=== PATIENT | male | born 1940 | race Caucasian/White ===

== ENCOUNTER 2021-10-10 23:55 | Inpatient (IN) | payer MEDICARE ==
[~2021-10-10] VITALS: Ht 175.3 cm; Wt 75.7 kg
--- NOTE | 2021-10-10 23:59 | NUR ---
- NIMA SHAIKH [phone], IS MOST HELPFUL FOR DAY TO DAY INFO, DORINA MENDEZ [phone]
--- NOTE | 2021-10-11 00:12 | NUR ---
Note maki in EDM - 10/11/21 at 0123 by MARY KAY PT [id number] C/O RIGHT KNEE PAIN S/P MECH TRIP AND FALL ONTO RIGHT KNEE WEDNESDAY +SWELLING +BRUISING +BLOOD THINNERS. PT A/OX3. TOLERATING R/A WELL WITH NO SOB.
--- NOTE | 2021-10-11 00:15 | NUR ---
PT [id number] C/O RIGHT KNEE PAIN S/P MECH TRIP AND FALL ONTO RIGHT KNEE WEDNESDAY +SWELLING +BRUISING +BLOOD THINNERS. PT A/OX3. TOLERATING R/A WELL WITH NO SOB.
--- NOTE | 2021-10-11 00:46 | NUR ---
PT RETURNED TO ER BED [address]
[2021-10-11] MEDS ORDERED: HYDROCODONE/APAP 5/325MG TABLET ONE ×2 (01:19→08:52)
[2021-10-11] MEDS ORDERED: HYDROCODONE/APAP 5/325MG TABLET PO ONE ×2 (01:30→09:00)
--- NOTE | 2021-10-11 02:20 | NUR ---
AT BEDSIDE WITH PT.
[2021-10-11] MEDS ORDERED: OXYC-128 PO (02:33)
--- NOTE | 2021-10-11 03:04 | NUR ---
CORDELL WRAP AAPPLIED TO RIGHT KNEE WITH ICE.
--- NOTE | 2021-10-11 03:57 | NUR ---
APA NO AVAILABLE TIME SLOT, TRY BACK AFTER 7AM.
--- NOTE | 2021-10-11 05:45 | NUR ---
PT DISCHARGE INSTRUCTIONS GIVEN, PT RT LEG CURRENTLY ELEVATED, WITH ICE PACK PLACED TO RT KNEE.
--- NOTE | 2021-10-11 07:27 | NUR ---
RN OFFERED PT REHAB RESOURSES BUT PT DENIED. DR. MIKE GONZALEZ AWARE. NOTIFIED DAUGHTER & NIMA. PT A/OX4 ABLE TO MAKE DECISIONS FOR HIMSELF; VERBALIZED RISKS VS BENEFITS.
--- NOTE | 2021-10-11 07:28 | NUR ---
PER PT, PT WANTS TO BE D/C HOME. PT WAITING FOR TO PICK HIM UP.
--- NOTE | 2021-10-11 08:01 | NUR ---
BREAKFAST TRAY PROVIDED.
--- NOTE | 2021-10-11 08:20 | NUR ---
pt still c/o r knee pain. unable to bear weight to affected extremity. unable to walk steadily due to pain. dr aguero aware.
--- NOTE | 2021-10-11 08:45 | NUR ---
MOVE SHEET SUBMITTED.
--- NOTE | 2021-10-11 08:51 | NUR ---
COVID SPECIMEN OBTAINED AND SENT TO LAB.
--- NOTE | 2021-10-11 08:54 | NUR ---
called nursing supervisor [facility] for m/s bed.
[2021-10-11] MEDS ORDERED: ZOLP10TA2 PO (08:55)
[2021-10-11] MEDS ORDERED: SERT100T12 PO (08:55)
[2021-10-11] MEDS ORDERED: FINA5TAB11 PO (08:55)
[2021-10-11] MEDS ORDERED: OMEG-72 PO (08:55)
[2021-10-11] MEDS ORDERED: TAMS-12 PO (08:55)
[2021-10-11] MEDS ORDERED: SITA1TAB2 PO (08:55)
[2021-10-11] MEDS ORDERED: PRAV80TA21 PO (08:55)
[2021-10-11] MEDS ORDERED: LISI-768 PO (08:55)
[2021-10-11] MEDS ORDERED: EZET10TA32 PO (08:55)
[2021-10-11 09:13] LABS: BASOPHILS % (AUTO) 0.7 % (0.0-2.0); EOSINOPHILS % (AUTO) 2.3 % (0.0-6.0); HEMATOCRIT 30 % (39-51); HEMOGLOBIN 9.9 g/dL (13.5-17.5); LYMPHOCYTES # (AUTO) 0.8 K/uL (0.8-4.8); LYMPHOCYTES % (AUTO) 16.7 % (20.0-44.0); MEAN CORPUSCULAR HGB CONC 33 g/dl (31.0-36.0); MEAN CORPUSCULAR VOLUME 81 fL (80-96); MONOCYTES # (AUTO) 0.3 K/uL (0.1-1.30); MONOCYTES % (AUTO) 5.6 % (2.0-12.0); NEUTROPHILS # (AUTO) 3.4 K/uL (1.8-8.9); NEUTROPHILS % (AUTO) 74.7 % (43.0-81.0); PLATELET COUNT (AUTO) 135 K/uL (150-450); RED BLOOD CELL COUNT(AUTO) 3.66 MIL/uL (4.5-6.0); WHITE BLOOD COUNT (AUTO) 4.6 K/uL (4.3-11.0)
[2021-10-11 09:15] LABS: CALCIUM, SERUM 8.9 mg/dL (8.5-10.1); CREATININE 1.3 mg/dL (0.6-1.3); POTASSIUM 5.5 mmol/L (3.5-5.1)
--- NOTE | 2021-10-11 09:46 | NUR ---
[facility] CALLED CUPROUS CHLORIDE HELPER PAGED.
[2021-10-11] MEDS ORDERED: ONDANSETRON HCL/PF 4 MG/2 ML VIAL IVP PRN (10:00)
[2021-10-11] MEDS ORDERED: IV NS 0.9% 1,000 ML IV PRN (10:00)
[2021-10-11] MEDS ORDERED: MORPHINE SULFATE INJ 2 MG/ML DISP.SYRIN IV PRN (10:00)
[2021-10-11] MEDS ORDERED: ACETAMINOPHEN 325 MG TABLET PO PRN (10:00)
--- NOTE | 2021-10-11 10:38 | NUR ---
BED 327-1
--- NOTE | 2021-10-11 10:43 | NUR ---
REPORT GIVEN TO ERIKA GIBBS OF [facility]
[2021-10-11 12:00] VITALS: BP 118/58
--- NOTE | 2021-10-11 12:00 | NUR ---
MS RN NOTE RECEIVED PATIENT FROM ER, TRANSPORTED [facility]IA [facility] BY 2 NURSES. PATIENT ABLE TO TRANSFER TO BED WITH LITTLE ASSISTANCE. PATIENT IS ALERT AND ORIENTED. NO SKIN BREAKDOWN NOTED. PATIENT WITH IV ACCESS ON THE RIGHT AC G 20, PATENT AND INTACT. WITH SWOLLEN RIGHT KNEE COVERED WITH ELASTIC BANDAGE. WITH GOOD CIRCULATION ON THE RIGHT FOOT. COMFORT MEASURES PROVIDED. MD NOTIFIED OF ADMISSION. SAFETY MEASURES IN PLACE: BED LOCKED AND IN LOWEST POSITION, CALL LIGHT WITHIN REACH, SIDE RAILS UP, BED ALARM ON. WILL MONITOR PATIENT CLOSELY.
[2021-10-11] MEDS: HYDROCODONE/APAP 5/325MG TABLET PO PRN ×2 (15:29→22:23)
[2021-10-11 16:00] VITALS: BP 116/74
--- NOTE | 2021-10-11 19:20 | NUR ---
MS RN CLOSING NOTE PATIENT IS ALERT AND ORIENTED X 4. NO SKIN BREAKDOWN NOTED. PATIENT WITH IV ACCESS ON THE RIGHT AC G 20, WITH NS RUNNING AT 75 ML/HR, INFUSING WELL. WITH SWOLLEN RIGHT KNEE COVERED WITH ELASTIC BANDAGE. WITH GOOD CIRCULATION ON THE RIGHT FOOT. COMFORT MEASURES PROVIDED. MD NOTIFIED OF ADMISSION. SAFETY MEASURES IN PLACE: BED LOCKED AND IN LOWEST POSITION, CALL LIGHT WITHIN REACH, SIDE RAILS UP, BED ALARM ON. WILL MONITOR PATIENT CLOSELY.
--- NOTE | 2021-10-11 19:30 | NUR ---
RN OPENING NOTE PATIENT IN BED, AWAKE. RN HELPED PATIENT AMBULATE TO BATHROOM WITH WALKER WITH ASSISTANCE. A/O X 4, ABLE TO MAKE NEEDS KNOWN. PATIENT IS ON RA, TOLERATING PAIN. PATIENT COMPLAINS OF MILD PAIN ON R KNEE, R KNEE NOTICEABLY SWOLLEN. ENCOURAGED PATIENT NOT TO GET UP BY HIMSELF. SAFETY MEASURES IN PLACE: BED LOCKED AND IN LOWEST POSITION, CALL LIGHT WITHIN REACH, SIDE RAILS UP, BED ALARM ON. WILL MONITOR PATIENT CLOSELY.
[2021-10-11 20:00] VITALS: BP 118/61
[2021-10-11] MEDS: BUDESONIDE RESPULE INH 0.25 MG/2 ML AMPUL.NEB NEB SCH (20:05)
--- NOTE | 2021-10-11 21:09 | NUR ---
RN NOTE OBTAINED ORDER FROM FOR AMBIEN 5 MG PO HS PRN, MAY GIVE ANOTHER 5 MG IF INEFFECTIVE. ADDITIONAL ORDER FOR MODERATE SSI ACHS. ORDERS CARRIED OUT.
[2021-10-11] MEDS ORDERED: ZOLPIDEM TARTRATE 5 MG TABLET PO PRN (21:30)
[2021-10-11] MEDS ORDERED: DEXTROSE 50%-WATER 50 ML DISP.SYRIN IV PRN (21:30)
[2021-10-11] MEDS ORDERED: *INSULIN REGULAR(HUMULIN R)HUM 100 UNIT/ML VIAL SQ PRN (21:30)
[2021-10-11] MEDS: BLOOD SUGAR DIAGNOSTIC 1 EACH STRIP VI SCH (21:40)
--- NOTE | 2021-10-11 21:41 | NUR ---
RN NOTE BS 153 MG/DL, PATIENT REUSING TO HAVE INSULIN AT THIS TIME. PROVIDED EDUCATION ON DM 2 AND INSULIN. WILL TRY AGAIN AT A LATER TIME.
--- NOTE | 2021-10-12 00:01 | NUR ---
RN NOTE NOTIFIED MD REGARDING POTASSIUM LEVEL 5.5, AWAITING NEW ORDERS
--- NOTE | 2021-10-12 00:20 | NUR ---
RN NOTE DR. GENTILE ORDERED 30 GM KAYAXELATE PO, NOT STOCKED IN [facility], NURSING GLUE PLANT OPERATOR NOTIFIED
[2021-10-12 00:21] VITALS: BP 130/98
[2021-10-12] MEDS ORDERED: SODIUM POLYSTYRENE SULF. PWD 15 GM UDC PO ONE (00:30)
[2021-10-12] MEDS ORDERED: SODIUM POLYSTYRENE SULFONATE 15 G/60 ML BOTTLE ONE (01:21)
[2021-10-12] MEDS ORDERED: SODIUM POLYSTYRENE SULFONATE 15 G/60 ML BOTTLE PO ONE (02:00)
--- NOTE | 2021-10-12 02:30 | NUR ---
RN NOTE PATIENT REFUSED KAYAXELATE PO 30GM LIQUID. PATIENT STATES THAT HE IS QUITE UNSEASY TAKING NEW MEDICATION AND WOULD LIKE FOR HIS REGULAR PHYSICIANS TO KNOW ABOUT THIS MEDICATION FIRST BEFORE TAKING NEW MEDICATION. RN EDUCATED THE PATIENT REGARDING MEDICATION PURPOSE, DOSAGE, AND EFFECTS TO HELP EASE PATIENT ON TAKING THIS MED. PATIENT STATES THAT OUR DOCTOR DOES NOT KNOW HIS EXTENSIVE HX AND MEDS AND ALL OF A SUDDEN MD IS INTRODUCING NEW MED. PATIENT SEEMS UPSET ABOUT THIS. CHARGE NURSE AWARE.
--- NOTE | 2021-10-12 06:06 | NUR ---
RN NOTE BS 150 MG/DL, PATIENT CONTINUES TO REFISE INSULIN COVERAGE DESPITE EDUCATION ON RISK AND BENEFITS. WILL MONITOR FOR HYPO/HYPERGLYCEMIA
[2021-10-12 06:12] LABS: BASOPHILS % (AUTO) 0.9 % (0.0-2.0); EOSINOPHILS % (AUTO) 3.4 % (0.0-6.0); HEMATOCRIT 27 % (39-51); LYMPHOCYTES # (AUTO) 0.8 K/uL (0.8-4.8); LYMPHOCYTES % (AUTO) 20.3 % (20.0-44.0); MEAN CORPUSCULAR HGB CONC 34 g/dl (31.0-36.0); MEAN CORPUSCULAR VOLUME 80 fL (80-96); MONOCYTES # (AUTO) 0.2 K/uL (0.1-1.30); MONOCYTES % (AUTO) 5.7 % (2.0-12.0); NEUTROPHILS # (AUTO) 2.6 K/uL (1.8-8.9); NEUTROPHILS % (AUTO) 69.7 % (43.0-81.0); PLATELET COUNT (AUTO) 133 K/uL (150-450); RED BLOOD CELL COUNT(AUTO) 3.33 MIL/uL (4.5-6.0); WHITE BLOOD COUNT (AUTO) 3.8 K/uL (4.3-11.0)
[2021-10-12 06:40] LABS: CALCIUM, SERUM 8.6 mg/dL (8.5-10.1); CREATININE 1.2 mg/dL (0.6-1.3); MAGNESIUM 1.9 mg/dL (1.8-2.4); PHOSPHORUS 3.4 mg/dL (2.5-4.9); POTASSIUM 5.3 mmol/L (3.5-5.1)
--- NOTE | 2021-10-12 06:56 | NUR ---
RN CLOSING NOTE PATIENT IN BED, AWAKE. A/O X 4, ABLE TO MAKE NEEDS KNOWN. PATIENT IS ON RA, TOLERATING PAIN. PATIENT COMPLAINS OF MILD PAIN ON R KNEE, MANAGED WITH NORCO 5/325, AMBIEN ALSO GIVEN LAST NIGHT. ENCOURAGED PATIENT NOT TO GET UP BY HIMSELF. SAFETY MEASURES IN PLACE: BED LOCKED AND IN LOWEST POSITION, CALL LIGHT WITHIN REACH, SIDE RAILS UP, BED ALARM ON. ALL NEEDS MET AND ATTENDED. EDUCATED ON ALL ORDERS. WILL ENDORSE TO DAY SHIFT NURSE FOR FIORELLA. NOT IN ANY APPARENT DISTRESS.
--- NOTE | 2021-10-12 07:33 | NUR ---
RN OPENING NOTE- PT IN BED, AWAKE. A/O X 4, ABLE TO MAKE NEEDS KNOWN. PATIENT IS ON RA, TOLERATING PAIN. PAIN IN R KNEE, MANAGED WITH NORCO 5/325. SAFETY MEASURES IN PLACE: BED LOCKED AND IN LOWEST POSITION, CALL LIGHT WITHIN REACH, SIDE RAILS UP, BED ALARM ON. ALL NEEDS MET AND ATTENDED. MONITOR/ ASSIST.
[2021-10-12] MEDS: BUDESONIDE RESPULE INH 0.25 MG/2 ML AMPUL.NEB NEB SCH ×2 (07:36→20:17)
[2021-10-12] MEDS: BLOOD SUGAR DIAGNOSTIC 1 EACH STRIP VI SCH ×4 (07:47→21:33)
[2021-10-12] MEDS: INSULIN REGULAR, HUMAN 100 UNIT/ML 3 ML VIAL SQ PRN ×2 (07:47→11:54)
[2021-10-12] MEDS: HYDROCODONE/APAP 5/325MG TABLET PO PRN ×2 (08:07→19:30)
--- NOTE | 2021-10-12 18:32 | NUR ---
RN CLOSING NOTE-PT IN BED, AWAKE. A/O X 4, ABLE TO MAKE NEEDS KNOWN. PATIENT IS ON RA, TOLERATING PAIN. PAIN IN R KNEE, MANAGED WITH NORCO 5/325. SAFETY MEASURES IN PLACE: BED LOCKED AND IN LOWEST POSITION, CALL LIGHT WITHIN REACH, SIDE RAILS UP, BED ALARM ON. ALL NEEDS MET AND ATTENDED. MONITOR/ ASSIST.
--- NOTE | 2021-10-12 19:50 | NUR ---
MS/RN OPENING NOTE RECEIVED PATIENT RESTING IN BED. AWAKE, ALERT AND ORIENTED X 4. ABLE TO MAKE NEEDS KNOWN. CONTINUES ON ROOM AIR WITH NO S/SX OF RESPIRATORY DISTRESS NOTED. IV ACCESS TO RIGHT AC #20G INTACT AND PATENT. CONTINUES ON IVF NS @ 75ML/HR. CALL LIGHT WITHIN REACH. ASPIRATION, FALL AND SAFETY PRECAUTIONS MAINTAINED. WILL CONTINUE TO MONITOR.
--- NOTE | 2021-10-12 21:40 | NUR ---
MS/RN NOTE PATIENTS BLOOD GLUCOSE TONIGHT IS 183. PATIENT REFUSING INSULIN SS AT THIS TIME. EDUCATED PATIENT ON IMPORTANCE OF MEDICATION WITH PATIENT CONTINUING TO REFUSE. WILL CONTINUE TO MONITOR.
[2021-10-12] MEDS ORDERED: ZOLPIDEM TARTRATE 10 MG TABLET PO ONE (22:00)
--- NOTE | 2021-10-12 22:00 | NUR ---
MS/RN NOTE PATIENT REQUESTING INCREASE IN AMBIEN DOSE TO 10MG. PATIENT RECEIVED 5MG DOSE LAST NIGHT AND STATES IT DID NOT HELP. WILL CONTACT CORRECTIONAL MAINTENANCE TECHNICIAN MD.
--- NOTE | 2021-10-12 22:15 | NUR ---
MS/RN NOTE NEW ORDER FROM VAPOR COATER MD KRUPA VACA 10MG X 1 TONIGHT. ORDER INPUTTED AND CARRIED OUT.
[2021-10-13] MEDS: BLOOD SUGAR DIAGNOSTIC 1 EACH STRIP VI SCH ×2 (06:26→12:18)
--- NOTE | 2021-10-13 06:26 | NUR ---
MS/RN NOTE PATIENTS BLOOD GLUCOSE LEVEL THIS AM IS 158. PATIENT REFUSING INSULIN SS AT THIS TIME. EXPLAINED RISKS/BENEFITS WITH PATIENT CONTINUING TO REFUSE.
--- NOTE | 2021-10-13 06:27 | NUR ---
MS/RN NOTE IV NOTED TO BE DISLODGED. NO BLEEDING AT OLD IV SITE. WILL ATTEMPT IV PLACEMENT.
[2021-10-13 06:50] LABS: BASOPHILS % (AUTO) 0.7 % (0.0-2.0); EOSINOPHILS % (AUTO) 2.5 % (0.0-6.0); HEMATOCRIT 27 % (39-51); LYMPHOCYTES # (AUTO) 0.8 K/uL (0.8-4.8); LYMPHOCYTES % (AUTO) 19.6 % (20.0-44.0); MEAN CORPUSCULAR HGB CONC 34 g/dl (31.0-36.0); MEAN CORPUSCULAR VOLUME 80 fL (80-96); MONOCYTES # (AUTO) 0.2 K/uL (0.1-1.30); MONOCYTES % (AUTO) 6.2 % (2.0-12.0); NEUTROPHILS # (AUTO) 2.8 K/uL (1.8-8.9); PLATELET COUNT (AUTO) 134 K/uL (150-450); RED BLOOD CELL COUNT(AUTO) 3.33 MIL/uL (4.5-6.0)
--- NOTE | 2021-10-13 06:50 | NUR ---
MS/RN CLOSING NOTE PATIENT CURRENTLY RESTING IN BED. AWAKE, ALERT AND ORIENTED X 4. ABLE TO MAKE NEEDS KNOWN. CONTINUES ON ROOM AIR WITH NO S/SX OF RESPIRATORY DISTRESS NOTED. IV ACCESS TO LEFT FOREARM #22G INTACT AND PATENT. CONTINUES ON IVF NS @ 75ML/HR. CONTINUES TO REFUSE INSULIN SLIDING SCALE. CALL LIGHT WITHIN REACH. ASPIRATION, FALL AND SAFETY PRECAUTIONS MAINTAINED. WILL ENDORSE PLAN OF CARE TO ONCOMING SHIFT.
--- NOTE | 2021-10-13 07:00 | NUR ---
RN OPENING NOTE RECEIVED PT IN BED. A/O X4. ABLE TO MAKE NEEDS KNOWN. ON ROOM AIR, DENIES SOB. IN NO APPARENT DISTRESS. DENIES ANY PAIN AT THE MOMENT. IV ACCESS ON LFA #22 G, NS RUNNING AT 75 ML/HR, INTACT AND PATENT. SAFETY MEASURES MAINTAINED. BED IN LOWEST POSITION, BRAKES LOCKED. SIDE RAILS UP X2. CALL LIGHT WITHIN REACH. WILL CONTINUE PLAN OF CARE.
[2021-10-13 07:17] LABS: CALCIUM, SERUM 8.6 mg/dL (8.5-10.1); CREATININE 1.2 mg/dL (0.6-1.3); MAGNESIUM 1.9 mg/dL (1.8-2.4); PHOSPHORUS 3.7 mg/dL (2.5-4.9); POTASSIUM 4.7 mmol/L (3.5-5.1)
[2021-10-13] MEDS: BUDESONIDE RESPULE INH 0.25 MG/2 ML AMPUL.NEB NEB SCH (07:49)
[2021-10-13 08:00] VITALS: BP 121/58
[2021-10-13] MEDS: INSULIN REGULAR, HUMAN 100 UNIT/ML 3 ML VIAL SQ PRN (12:19)
[2021-10-13] MEDS ORDERED: LIDOCAINE 1% INJ 50 ML MDV IJ ONE (15:00)
[2021-10-13 16:00] VITALS: BP 146/71
--- NOTE | 2021-10-13 17:40 | NUR ---
DISCHARGE NOTE PATIENT'S GOING BACK TO HOME. TRANSPORTATION WAS ARRANGED. VSS BP 123/87 AZ 76 RR 15 T 98.5 SA02 98%. DARRICK LIA DID A RIGHT ROGER-PATELLAR HEMATOMA ASPIRATION PRIOR DC. WRAPPED R KNEE WITH ELASTIC BANDAGE. PHOTO TAKEN AND PLACED IN CHART. DISCHARGE INSTRUCTIONS AND HEALTH TEACHING GIVEN. REMOVED IV ACCESS. ALL FORMS SIGNED.
[2021-10-13] MEDS ORDERED: ZOLPIDEM TARTRATE 5 MG TABLET PO PRN (22:00)
== END 2021-10-13 17:45 | disposition home health service (06) | DRG 605 ==
LOC: ER 23:58 → MED 10-11 10:52
PROVIDERS: ADMIT Nurse Practitioner Acute Care; ATTEND Nurse Practitioner Acute Care
DX: S80.01XA Contusion of right knee, initial encounter (principal); D68.59 Other primary thrombophilia; N17.9 Acute kidney failure, unspecified; W01.0XXA Fall on same level from slipping, tripping and stumbling without subsequent striking against object, initial encounter; Y92.9 Unspecified place or not applicable; E86.0 Dehydration; E87.5 Hyperkalemia; I25.10 Atherosclerotic heart disease of native coronary artery without angina pectoris; Z20.822 Contact with and (suspected) exposure to COVID-19; R29.6 Repeated falls; D64.9 Anemia, unspecified; E11.9 Type 2 diabetes mellitus without complications; Z86.79 Personal history of other diseases of the circulatory system; Z74.09 Other reduced mobility; Z79.02 Long term (current) use of antithrombotics/antiplatelets
CPT/HCPCS: 36415; 71045-TC; 73700-TC; 80048-TC; 80061-TC; 82962-TC; 83735-TC; 84100-TC; 85025-TC; 87081-TC; 94799-TC; 97116-TC; 97530-TC; C9803; G0378; J1815; J3490; J7030